=== PATIENT | male | born 1970 | race Caucasian/White ===

== ENCOUNTER 2024-07-15 08:21 | Observation (INO) ==
[2024-07-15 09:21] LABS: Basophils # (auto) 0.01 K/uL (0.00-0.20); Basophils % (auto) 0.1 %; Eosinophils # (auto) 0.16 K/uL (0.00-0.50); Eosinophils % (auto) 1.9 %; Hematocrit (blood only) 43.2 % (42.0-52.0); Hemoglobin 15.2 g/dl (14.0-18.0); Immature Granulocytes # (auto) 0.05 K/uL (0.01-0.20); Immature Granulocytes % (auto) 0.6 %; Lymphocytes # (auto) 0.85 K/uL (1.20-3.40); Lymphocytes % (auto) 10.3 %; Mean Corpuscular Hemoglobin 28.7 pg (25.0-34.0); Mean Corpuscular Hgb Conc 35.2 g/dL (32.0-36.0); Mean Corpuscular Volume 81.5 fL (80.0-100.0); Mean Platelet Volume 9.1 fL (9.4-12.4); Monocytes # (auto) 0.62 K/uL (0.11-0.59); Monocytes % (auto) 7.5 %; Neutrophils # (auto) 6.59 K/uL (1.40-6.50); Neutrophils % (auto) 79.6 %; Platelet Count 174 K/uL (130-400); RDW Coefficient of Variation 12.1 % (11.5-14.5); RDW Standard Deviation 35.7 fL (36.4-46.3); White Blood Count 8.28 K/ul (4.8-10.8)
[2024-07-15] MEDS: HYDROmorphone INJ 0.5 MG/0.5 ML SYR IV STA (09:30)
--- NOTE | 2024-07-15 09:32 | XRay Report ---
XR knee RT 3V CLINICAL HISTORY: worsening swelling, pain COMPARISON: 07/04/2024 FINDINGS: No acute fracture or dislocation. There is mild osteoarthritis. There is anterior soft tis jorge alberto swelling. No radiopaque foreign body seen. No evidence of osteomyelitis. IMPRESSION: 1. Anterior soft tissue swelling with no fracture seen. 2. Osteoarthritis. ACT 112: Negative or not required by law. Electronically signed by: Erick Dean M.D. 07/15/2024 9:30 AM
[2024-07-15 09:43] LABS: Albumin Globulin Ratio 1.1 (0.9-2); Albumin Level 3.5 gm/dl (3.4-5.0); BUN Creatinine Ratio 14.3 (10-20); Bilirubin,Total 0.8 mg/dl (0.2-1.0); C Reactive Protein 8.96 mg/dl (0-0.5); Creatinine Clr Calc Pharmacy 105.7 ml/min; Globulin 3.2 gm/dl (2.5-4.0); Potassium 4.1 mmol/L (3.5-5.1); Total Protein 6.7 gm/dl (6.0-8.3)
[2024-07-15] MEDS ORDERED: VANCOMYCIN CONSULT ACTIVE PRN (10:16)
[2024-07-15] MEDS: cefTRIAXone SODIUM 2,000 MG/50 ML BAG IV STA (10:45)
[2024-07-15] MEDS: VANCOMYCIN HCL 2,500 MG in SODIUM CHLORIDE 0.9% 500 ML IV ONE (10:52)
[2024-07-15] MEDS: ONDANSETRON INJ 2 MG/ML 2 ML VIAL ONE (10:52)
--- NOTE | 2024-07-15 12:04 | Emergency Department Note ---
Impression & Plan Cellulitis, Bursitis ED Provider Note NAME: WALI TEJEDA AGE: 53 SEX: M : 1970 ARRIVES VIA: Walk-In INFORMANT: Patient, ED PROVIDER(S): Gris Tran MD CHIEF COMPLAINT: Right knee pain HPI: This is a [id number]-year-old male presenting for right knee pain. Patient notes that he was working on his knees previously. He was seen here for knee pain a few weeks ago and out of prepatellar bursitis. He has had worsening pain. He notes exquisite tenderness to palpation as well as ambulation. He notes no fevers, chills, nausea or vomiting. There has been increase in the swollen in this region. ROS: See above HPI for pertinent positives & negatives. A total of 10 systems reviewed and were otherwise negative. PAST MEDICAL HISTORY: See Below PAST SURGICAL HISTORY: See Below FAMILY HISTORY: See Below SOCIAL HISTORY: See Below HOME MEDICATIONS: See Below ALLERGIES: See Below VITALS: See Below PHYSICAL EXAMINATION: General: resting comfortably in no acute distress Head: Normocephalic and atraumatic Eyes: Normal inspection, extraocular muscles intact Ear, nose, throat: Normal external exam Neck: Normal range of motion Respiratory: lungs clear to auscultation bilaterally Cardiovascular: Regular rate/rhythm, no murmur GI: soft, nontender, no guarding or rebound Extremities: Significant anterior knee swelling, slight erythema medially tracking up into the thigh, swollen lower extremity Neuro: The patient awake and alert, appropriately conversive, no focal deficits, symmetric faces Skin: Warm, dry, and intact MEDICAL DECISION MAKING: this a 53-year-old male presented for right knee pain. Clinically patient may have a infected cellulitis of the anterior knee versus a prepatellar bursitis infection. Attempted to get a sample of fluid from the bursa without success. -Bloodwork is reviewed showing no significant leukocytosis, anemia, electrolyte or creatinine abnormality -X-ray is reviewed showing anterior soft tissue swelling with no fracture, osteoarthritis also noted. -Patient ceftriaxone and vancomycin at this time. Patient given Dilaudid for pain control. -Will admit this time for cellulitis/infected bursa. -Care with Dr. Jensen Differential diagnosis: Septic knee, bursitis, cellulitis, gout Independent History obtained from: Diagnostics interpreted by me: ECG: None Cardiac Monitoring: An order was placed for continuous cardiac monitoring. The monitor shows a rate of 196 with sinus rhythm. Past Med/Surg History Problem List (Updated 07/15/24 @ 16:37 by Gris Tran MD) Bursitis (Acute) Cellulitis (Acute) Dyslipidemia Diabetes mellitus, type II Hypertension Bursitis, prepatellar (Acute) Medical History No significant past medical history Surgical History No pertinent past surgical history Family History Other Diabetes Social History Smoking Status: Never smoker Hx Substance Use: No Preferred Language: Luxembourgish Visual Impairment: No Limitations Hearing Ability: Normal marital status: Current Living Situation: Family current occupational status: employed Feels Safe at Home: Yes Allergies Allergies Allergy/AdvReac Type Severity Reaction Status Date / Time bee venom protein (honey bee) AdvReac Hives Unverified 09/25/20 02:05 Home Meds Home Medications Medication Instructions Recorded Confirmed insulin glargine 100 unit/mL (3 75 unit subcut HS 07/15/24 07/15/24 mL) subcutaneous pen (Lantus Solostar U-100 Insulin) meloxicam 15 mg tablet 15 mg PO .Q OTHER DAY 07/15/24 07/15/24 multivitamin 1 tab PO DAILY 07/15/24 07/15/24 olmesartan 20 mg tablet 20 mg PO DAILY 07/15/24 07/15/24 rosuvastatin 20 mg tablet 20 mg PO DAILY 07/15/24 07/15/24 Results & Data (ED) Vital Signs Vital Signs - 24 hr 07/15/24 08:27 07/15/24 09:13 07/15/24 10:57 Temperature 36.4 C L Temperature Source Temporal Artery Scan Pulse Rate 110 H Pulse Rate [Apical] 88 Respiratory Rate 18 18 18 Respiratory Effort / Characteristics Respiratory Depth Blood Pressure 130/90 Blood Pressure [Left Arm] 130/90 Blood Pressure Mean 103 Blood Pressure Mean [Left Arm] 103 Blood Pressure Position [Left Arm] Pulse Oximetry 97 93 Oxygen Delivery Method Room Air Room Air Sepsis New/Unexplained Change in Mental Status No Sepsis Action Taken by Nursing No Action Required 07/15/24 12:00 07/15/24 14:05 07/15/24 15:00 Temperature Temperature Source Pulse Rate Pulse Rate [Apical] 94 H 102 H 92 H Respiratory Rate 18 18 18 Respiratory Effort / Characteristics Non-Labored Respiratory Depth Normal Blood Pressure Blood Pressure [Left Arm] 156/93 H 132/84 159/96 H Blood Pressure Mean Blood Pressure Mean [Left Arm] 114 100 117 Blood Pressure Position [Left Arm] Lying Pulse Oximetry 98 96 95 Oxygen Delivery Method Room Air Sepsis New/Unexplained Change in Mental Status Sepsis Action Taken by Nursing 07/15/24 16:00 Temperature Temperature Source Pulse Rate Pulse Rate [Apical] 96 H Respiratory Rate 20 Respiratory Effort / Characteristics Respiratory Depth Blood Pressure Blood Pressure [Left Arm] 141/88 H Blood Pressure Mean Blood Pressure Mean [Left Arm] 105 Blood Pressure Position [Left Arm] Pulse Oximetry 96 Oxygen Delivery Method Room Air Sepsis New/Unexplained Change in Mental Status Sepsis Action Taken by Nursing Laboratory Data 07/15/24 09:11 07/15/24 09:11 Lab Results 07/15/24 Range/Units 09:11 WBC 8.28 (4.8-10.8) K/ul RBC 5.30 (4.70-6.10) M/uL Hgb 15.2 (14.0-18.0) g/dl Hct 43.2 (42.0-52.0) % MCV 81.5 (80.0-100.0) fL MCH 28.7 (25.0-34.0) pg MCHC 35.2 (32.0-36.0) g/dL RDW Std Deviation 35.7 L (36.4-46.3) fL RDW Coeff of Nicholas 12.1 (11.5-14.5) % Plt Count 174 (130-400) K/uL MPV 9.1 L (9.4-12.4) fL Immature Gran % (Auto) 0.6 % Neut % (Auto) 79.6 % Lymph % (Auto) 10.3 % Dickinson % (Auto) 7.5 % Eos % (Auto) 1.9 % Baso % (Auto) 0.1 % Neut # (Auto) 6.59 H (1.40-6.50) K/uL Lymph # (Auto) 0.85 L (1.20-3.40) K/uL Dickinson # (Auto) 0.62 H (0.11-0.59) K/uL Eos # (Auto) 0.16 (0.00-0.50) K/uL Baso # (Auto) 0.01 (0.00-0.20) K/uL Immature Gran # (Auto) 0.05 (0.01-0.20) K/uL ESR 35 H (0-20) mm/hr Sodium 137 (136-145) mmol/L Potassium 4.1 (3.5-5.1) mmol/L Chloride 103 (98-107) mmol/L Carbon Dioxide 31 (21-32) mmol/L Anion Gap 3 (3-11) BUN 13 (6-23) mg/dl Creatinine 0.91 (0.6-1.4) mg/dl Est Cr Clr Drug Dosing 105.7 ml/min eGFR 99.53 BUN/Creatinine Ratio 14.3 (10-20) Glucose 210 H (70-99(Fasting)) mg/dl Calcium 9.0 (8.6-10.3) mg/dl Total Bilirubin 0.8 (0.2-1.0) mg/dl AST 16 (13-39) U/L ALT 27 (7-52) U/L Alkaline Phosphatase 80 (34-104) U/L C-Reactive Protein 8.96 H (0-0.5) mg/dl Total Protein 6.7 (6.0-8.3) gm/dl Albumin 3.5 (3.4-5.0) gm/dl Globulin 3.2 (2.5-4.0) gm/dl Albumin/Globulin Ratio 1.1 (0.9-2) Administered Medications Ondansetron HCl (Ondansetron Inj 2 Mg/Ml 2 Ml Vial) 4 mg IV Q6H PRN PRN Reason: Nausea And Vomiting Stop: 08/14/24 15:36 Last Admin: 07/15/24 16:13 Dose: 4 mg Documented By: GREGORY Discontinued Medications Hydromorphone HCl (Hydromorphone Inj 0.5 Mg/0.5 Ml Syr) 0.5 mg IV NOW STA Stop: 07/15/24 09:29 Last Admin: 07/15/24 09:30 Dose: 0.5 mg Documented By: DEZ Vancomycin HCl 2,500 mg/ (Sodium Chloride) 550 mls @ 200 mls/hr IV NOW ONE Stop: 07/15/24 13:00 Last Infusion: 07/15/24 14:02 Dose: Infused Documented By: Admin: 07/15/24 10:52 Dose: 200 mls/hr Documented By: DEZ Ceftriaxone Sodium (Rocephin) 2,000 mg in 50 mls @ 100 mls/hr IV NOW STA Stop: 07/15/24 10:45 Last Infusion: 07/15/24 11:17 Dose: Infused Documented By: Admin: 07/15/24 10:45 Dose: 100 mls/hr Documented By: DEZ Acetaminophen (Ofirmev) 1,000 mg in 100 mls @ 400 mls/hr IV NOW STA Stop: 07/15/24 14:19 Last Infusion: 07/15/24 14:41 Dose: Infused Documented By: Admin: 07/15/24 14:16 Dose: 400 mls/hr Documented By: DEZ Ondansetron HCl (Ondansetron Inj 2 Mg/Ml 2 Ml Vial) Confirm Administered Dose 4 mg .ROUTE .STK-MED ONE Stop: 07/15/24 10:51 Last Admin: 07/15/24 10:52 Dose: 4 mg Documented By: DEZ Imaging Data Radiologist's Impression: Knee X-Ray 07/15/24 09:10 XR knee RT 3V CLINICAL HISTORY: worsening swelling, pain COMPARISON: 07/04/2024 FINDINGS: No acute fracture or dislocation. There is mild osteoarthritis. There is anterior soft tissue swelling. No radiopaque foreign body seen. No evidence of osteomyelitis. IMPRESSION: 1. Anterior soft tissue swelling with no fracture seen. 2. Osteoarthritis. ACT 112: Negative or not required by law. Electronically signed by: Erick Dean M.D. 07/15/2024 9:30 AM Discharge Plan Visit Data Chief Complaint: Knee Injury/Pain Stated Complaint: RT KNEE PAIN ED Provider: Gris Tran Discharge Problem: Cellulitis, Bursitis Patient Disposition: Admitted As Inpatient Discharge Instructions Interventions: ED Discharge Assessment Last Done: 07/15/24 16:32 Forms Stand Alone Forms: [employer] Prescriptions Prescriptions: No Action multivitamin [Multi-Vitamins] Tablet 1 tab PO DAILY meloxicam 15 mg tablet 15 mg PO .Q OTHER DAY olmesartan 20 mg tablet 20 mg PO DAILY rosuvastatin 20 mg tablet 20 mg PO DAILY insulin glargine [Lantus Solostar U-100 Insulin] 100 unit/mL (3 mL) Insulin Pen 75 unit subcut HS Referrals Referrals: PCP,NO [Primary Care Provider] - Discharge Problem: Cellulitis Qualifiers: Site of cellulitis: extremity Site of cellulitis of extremity: lower extremity Laterality: right Qualified Code(s): L03.115 - Cellulitis of right lower limb
--- NOTE | 2024-07-15 14:05 | History & Physical Report ---
Date of Service July 15, 2024 Assessment & Plan (1) Bursitis, prepatellar: (2) Hypertension: (3) Diabetes mellitus, type II: (4) Dyslipidemia: Plan #Prepatellar bursitis - place in observation - cont IV abx, if improving in the next 24 hours, will d/c on oral abx - XR right knee unremarkable #Vomiting - check KUB - check CBC / BMP / lactate - NPO - IVF - zofran prn #HTN - cont home meds #DM II - A1c recently as outpatient: 9 - carb controlled diet - cont home meds - correctional scale #Dyslipidemia - cont statin Dispo: observation History of Present Illness Primary Care Provider: NO PCP 53 yo M with PMHx of HTN, DM II, HLD returns to the hospital for the evaluation of right knee pain. He was in the emergency room on 07/04/24 for prepatellar bursitis and sent home on steroids. He now returns with worsening pain, increased swelling, and more redness. He does not notice any improvement with the steroids he had taken. In the ED, work up negative for any osteomyelitis. ED physician attempted to collect fluid but was unable to aspirate any. Given evidence of cellulitis, he was started on IV antibiotics. 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 He is not able to wear knee pads consistently due to work requirement of getting into tight places. Allergies Allergy/AdvReac Type Severity Reaction Status Date / Time bee venom protein (honey bee) AdvReac Hives Unverified 09/25/20 02:05 Home Medications Medication Instructions Recorded Confirmed Type insulin glargine 100 unit/mL (3 75 unit subcut HS 07/15/24 07/15/24 History mL) subcutaneous pen (Lantus Solostar U-100 Insulin) meloxicam 15 mg tablet 15 mg PO .Q OTHER DAY 07/15/24 07/15/24 History multivitamin 1 tab PO DAILY 07/15/24 07/15/24 History olmesartan 20 mg tablet 20 mg PO DAILY 07/15/24 07/15/24 History rosuvastatin 20 mg tablet 20 mg PO DAILY 07/15/24 07/15/24 History Past Med/Surg History Problem List (Updated 07/15/24 @ 16:37 by Gris Tran MD) Bursitis (Acute) Cellulitis (Acute) Dyslipidemia Diabetes mellitus, type II Hypertension Bursitis, prepatellar (Acute) Medical History No significant past medical history Surgical History No pertinent past surgical history Family History Other Diabetes Social History Smoking Status: Never smoker Second Hand Exposure: No; Do You Dip or Chew Tobacco: No; Tobacco Cessation Education Requested by Patient: No Hx Alcohol Use: No Hx Substance Use: Yes Last Used Substance: Days (ago) Last Used Substance Other:: Only started using due to knee pain a few days ago Preferred Language: Hong Konger Communication Ability: Effective Visual Impairment: No Limitations Hearing Ability: Normal [place] Required: No Beliefs That Will Affect Care: None marital status: Current Living Situation: Spouse current occupational status: employed Other Information That Helps Us Care for You: No Feels Safe at Home: Yes Safety Concerns: Feels Safe At This Time Review of Systems Review of Systems: comprehensive ROS neg Physical Exam Physical Exam: Gen: in bed comfortable, NAD HEENT: NC/AT, anicteric, MMM Lungs: CTAB CVS: s1s2nl, RRR Abd: nl bowel sounds, soft, NT : no ayala Ext: right knee swollen anteriorly with redness Neuro: AAOx3 Psych: calm / cooperative Results & Data Results & Data Vital Signs (Past 12 Hours) Vital Signs Temp Pulse Pulse Resp BP BP Pulse Ox 07/15/24 12:00 94 H 18 156/93 H 98 07/15/24 10:57 88 18 130/90 93 07/15/24 09:13 18 07/15/24 08:27 36.4 C L 110 H 18 130/90 97 O2 Del Method 07/15/24 12:00 07/15/24 10:57 Room Air 07/15/24 09:13 07/15/24 08:27 Room Air PG Care Time/CCT Total # of Minutes Spent Total Time Spent with Patient: Total time spent is greater than 50% in coordination of care (as documented) at patient's floor/unit and/or counseling patient: Coding Level of Care Code 91326 INT INP/OBS CARE MIN Diagnoses Bursitis, prepatellar M70.40 Hypertension I10 Diabetes mellitus, type II E11.9 Dyslipidemia E78.5
[2024-07-15] MEDS: ACETAMINOPHEN 1,000 MG/100 ML VIAL IV STA (14:16)
[2024-07-15] MEDS ORDERED: PHARMACY GLYCEMIC MGMT CONSULT PRN (14:52)
--- NOTE | 2024-07-15 15:28 | Pharmacy Report ---
Pharmacy Glycemic Short Note 2 - Date of Service July 15, 2024 - Glycemic Short BSG Results (Last 24 hours): 07/15/24 09:11 Glucose 210 H OUTPATIENT ANTIDIABETIC REGIMEN: * Insulin glargine 75 units SQ HS * A1c 9% in 2022, updated A1c ordered ASSESSMENT: * 53 yo M PMHx of HTN, DM II, HLD returns to the hospital for the evaluation of R knee pain. He was in the ER on 07/04/24 for prepatellar bursitis and sent home on steroids. He now returns with cellulitis, starting on IV Vancomycin. * Patient on basal insulin alone as outpatient, will split this to basal bolus insulin dosing for better glycemic control while inpatient. PLAN FOR INPATIENT GLYCEMIC CONTROL: * Basal insulin * Lantus 40-65 units SQ HS (40 units for BSG < 220, 65 units for BSG 220 or greater) * Bolus insulin * NovoLog per scale ACHS or Q6hrs while NPO * Goal Range: Low 110 mg/dL - High 140 mg/dL * Correction Factor: 25 mg/dL/unit * Nutritional / Prandial insulin per carb ratio of 1 unit per 8 grams CHO consumed
[2024-07-15] MEDS ORDERED: CARBOHYDRATES FOR HYPOGLYCEMIA PO PRN (15:30)
[2024-07-15] MEDS ORDERED: GLUCOSE 10 TAB/TUBE PO PRN (15:30)
[2024-07-15] MEDS ORDERED: DEXTROSE 50% 50 ML SYRINGE IV PRN (15:30)
[2024-07-15] MEDS ORDERED: GLUCOSE 40% GEL 15 GM TUBE PO PRN (15:30)
[2024-07-15] MEDS ORDERED: GLUCAGON FOR INJ 1 MG VIAL SQ PRN (15:30)
[2024-07-15] MEDS: ONDANSETRON INJ 2 MG/ML 2 ML VIAL IV PRN (16:13)
[2024-07-15] MEDS: INSULIN ASPART PER UNIT CHARGE SC SCH (17:21)
[2024-07-15] MEDS: ceFAZolin 2000MG 2,000 MG/15 ML SYR IV SCH (17:54)
[2024-07-15] MEDS: ONDANSETRON INJ 2 MG/ML 2 ML VIAL IV STA (18:24)
[2024-07-15 18:32] LABS: Basophils # (auto) 0.01 K/uL (0.00-0.20); Basophils % (auto) 0.1 %; Eosinophils # (auto) 0.01 K/uL (0.00-0.50); Eosinophils % (auto) 0.1 %; Hematocrit (blood only) 41.3 % (42.0-52.0); Hemoglobin 14.4 g/dl (14.0-18.0); Immature Granulocytes # (auto) 0.07 K/uL (0.01-0.20); Immature Granulocytes % (auto) 0.7 %; Lymphocytes % (auto) 7.9 %; Mean Corpuscular Hemoglobin 28.6 pg (25.0-34.0); Mean Corpuscular Hgb Conc 34.9 g/dL (32.0-36.0); Mean Corpuscular Volume 81.9 fL (80.0-100.0); Mean Platelet Volume 9.4 fL (9.4-12.4); Monocytes # (auto) 0.48 K/uL (0.11-0.59); Monocytes % (auto) 4.7 %; Neutrophils # (auto) 8.82 K/uL (1.40-6.50); Neutrophils % (auto) 86.5 %; Platelet Count 184 K/uL (130-400); RDW Standard Deviation 35.7 fL (36.4-46.3); Red Blood Count 5.04 M/uL (4.70-6.10); White Blood Count 10.19 K/ul (4.8-10.8)
[2024-07-15 18:47] LABS: BUN Creatinine Ratio 13.6 (10-20); Calcium 8.8 mg/dl (8.6-10.3); Creatinine Clr Calc Pharmacy 90.4 ml/min; Potassium 4.2 mmol/L (3.5-5.1)
[2024-07-15] MEDS: LACTATED RINGER'S 1,000 ML IV SCH (18:54)
--- NOTE | 2024-07-15 19:37 | XRay Report ---
EXAM: Radiograph of the Abdomen 1 View INDICATION: Persistent vomiting TECHNIQUE: Frontal supine view of the abdomen/pelvis. COMPARISON: No relevant prior studies available. FINDINGS: Limitations: None. Gastrointestinal tract: Moderate formed stool throughout the colon sparing the rectum. The small bowel is relatively gasless. No gaseous distention. Organs: Visualized organ shadows appear grossly normal. Bones/joints: There is mild convex left scoliosis of the upper lumbar spine. Soft tissues: No abnormality noted. No radiopaque foreign body noted. IMPRESSION: Relatively gasless small bowel with moderate amounts of formed stool in the colon sparing the rectum. Gaseous appearance of the small bowel is suggestive of ileus. If additional imaging is clinically warranted, CT abdomen pelvis is the modality of choice. ACT 112: N/A Electronically signed by Gabi Will 07-15-2024 7:36 PM
[2024-07-15] MEDS ORDERED: NON-FORMULARY MEDICATION (Insulin Glargine [Lantus Solostar U-100 Insulin] 100 unit/mL (3 SQ SCH (21:00)
[2024-07-15] MEDS: VANCOMYCIN HCL 1,500 MG in SODIUM CHLORIDE 0.9% 500 ML IV SCH (21:09)
[2024-07-15] MEDS: LANTUS PER UNIT CHARGE SC SCH (21:12)
[2024-07-16 06:49] LABS: Hematocrit (blood only) 38.4 % (42.0-52.0); Hemoglobin 13.1 g/dl (14.0-18.0); Mean Corpuscular Hemoglobin 28.7 pg (25.0-34.0); Mean Corpuscular Hgb Conc 34.1 g/dL (32.0-36.0); Mean Platelet Volume 9.5 fL (9.4-12.4); Platelet Count 166 K/uL (130-400); RDW Coefficient of Variation 12.1 % (11.5-14.5); RDW Standard Deviation 36.6 fL (36.4-46.3); Red Blood Count 4.57 M/uL (4.70-6.10); White Blood Count 8.71 K/ul (4.8-10.8)
[2024-07-16 07:05] LABS: BUN Creatinine Ratio 13.5 (10-20); Calcium 8.7 mg/dl (8.6-10.3); Creatinine Clr Calc Pharmacy 95.6 ml/min; Magnesium 1.6 mg/dl (1.7-2.4); Phosphorus 3.1 mg/dl (2.5-4.9); Potassium 4.3 mmol/L (3.5-5.1)
[2024-07-16 07:25] LABS: Estimated Average Glucose 283 mg/dl; Hemoglobin A1C 11.5 % (4.5-5.6)
[2024-07-16] MEDS: LOSARTAN POTASSIUM 50 MG TAB PO SCH (08:18)
[2024-07-16] MEDS: ROSUVASTATIN CALCIUM 20 MG TAB PO SCH (08:18)
--- NOTE | 2024-07-16 10:48 | Hospitalist Progress Note ---
Date of Service July 16, 2024 Assessment & Plan (1) Bursitis, prepatellar: (2) Hypertension: (3) Diabetes mellitus, type II: (4) Dyslipidemia: Plan #Prepatellar bursitis - XR right knee unremarkable for acute pathology - MRSA neg, vanc d/c-ed - cont cefazoling - given worsening symptoms, will request ortho eval #Vomiting - resolved - no obvious obstruction, symptoms resolved - likely due to opioid pain medication - lactate now wnl - cont diet - zofran prn #HTN - cont home meds #DM II - A1c recently as outpatient: 9 - carb controlled diet - cont home meds - correctional scale - pharmacy assisting with BG management #Dyslipidemia - cont statin Dispo: observation Admission and Anticipated Discharge Date Admission Date: July 15, 2024 Subjective Since admission, he had significant vomiting after receiving opioid pain medications which has subsequently resolved From his right knee standpoint, he is having increased warmth without i mprovement in his swelling. He also has persistent redness. Review of Systems Review of Systems: comprehensive ROS neg Physical Exam Physical Exam: Gen: in bed comfortable, NAD HEENT: NC/AT, anicteric, MMM Lungs: CTAB CVS: s1s2nl, RRR Abd: nl bowel sounds, soft, NT : no ayala Ext: right knee swollen anteriorly with redness, worsening warmth and persistent pain Neuro: AAOx3 Psych: calm / cooperative Results & Data Results & Data Vital Signs (Past 12 Hours) Vital Signs Temp Pulse Resp BP Pulse Ox O2 Del Method 07/16/24 07:51 36.6 C 65 18 122/80 92 Room Air PG Care Time/CCT Total # of Minutes Spent Total Time Spent with Patient: Total time spent is greater than 50% in coordination of care (as documented) at patient's floor/unit and/or counseling patient: Coding Level of Care Code 79298 SUB INP/OBS CARE 2/35MIN Diagnoses Bursitis, prepatellar M70.40 Hypertension I10 Diabetes mellitus, type II E11.9 Dyslipidemia E78.5
[2024-07-16] MEDS: MAGNESIUM OXIDE 400 MG TAB PO ONE (11:05)
[2024-07-16] MEDS: IBUPROFEN 200 MG TAB PO PRN (11:18)
[2024-07-16] MEDS: LIDOCAINE 2% JELLY 5 ML TUBE EXT ONE (11:52)
[2024-07-16] MEDS: LIDOCAINE 2% 20 MG/ML 5 ML SYR IV ONE (12:01)
[2024-07-16] MEDS: LIDOCAINE 2% LOCAL 20 ML VIAL INFIL ONE (12:02)
--- NOTE | 2024-07-16 12:34 | Orthopedic Consultation ---
Date of Consultation July 16, 2024 Assessment & Plan (1) Bursitis, prepatellar: (2) Hypertension: (3) Diabetes mellitus, type II: (4) Dyslipidemia: Plan This is a 53 year old male with PMHx of HTN, DM II, and HLD presents for evaluation of right knee pain. He was in the emergency room on 07/04/24 for prepatellar bursitis and sent home on steroids. He then returned with worsening pain, increased redness and swelling. He did not notice any improvement after taking the steroids. In the ED, they did attempt to aspirate his prepatellar bursa but no aspirate was obtained. Given evidence of cellulitis, he was admitted to the hospital and started on IV antibiotics On my evaluation, the patient has tenderness palpation diffusely about his entire knee. He does have pain with motion of the knee most significantly with knee flexion. On admission, he had an elevated CRP at 8.9 mg/dL with an ESR of 35 and white blood cell count of only 8. Based on the patient's clinical exam, I do have a slight concern for septic arthritis, but my primary working diagnosis is prepatellar bursitis. In order to rule out septic arthritis, I did recommend an aspiration of the patient's need. We discussed the risks of this including nondiagnostic results, "dry tap", introduction of infection, need for surgery in the future. The patient and his were agreeable to the procedure. Please see separate procedure note for full details, we did obtain approximately 5 cc of clear yellow normal looking synovial fluid. Based on the appearance of the fluid, my index of suspicion for septic arthritis was much lower. His results have since come back and show a white blood cell count in the synovial fluid of 231 with 17% PMNs. Crystals, Lyme, Gram stain and cultures are all still pending. Given the above, my recommendation is to treat this as a prepatellar bursitis with elevation, ice, Rigoberto wrap, anti-inflammatory medications if able. I do not believe this represents an acute septic prepatellar bursitis as there is no significant erythema about his prepatellar bursa. No plans for acute orthopedic intervention at this time, patient to follow-up with his PCP with this regard. History of Present Illness Reason for Consultation: Right knee pain Attending Physician: Camila Coffey MD History of Present Illness Mr. 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 He was in the emergency room on 07/04/24 for prepatellar bursitis and sent home on steroids. He then returned with worsening pain, increased redness and swelling. He did not notice any improvement after taking the steroids. In the ED, they did attempt to aspirate his prepatellar bursa but no aspirate was obtained. Given evidence of cellulitis, he was admitted to the hospital and started on IV antibiotics. Currently, the patient notes pain and swelling in his right knee which worsens with attempts of movement. He has been ambulatory to the bathroom but also notes increased pain with this. He does feel that it is slightly better today than it has been. He otherwise denies fevers, chills, chest pain, shortness of breath, cough, abdominal pain, ongoing nausea/vomiting, or other systemic symptoms. No numbness/tingling. Allergies Allergy/AdvReac Type Severity Reaction Status Date / Time hydromorphone AdvReac Mild Vomiting Verified 07/16/24 10:47 bee venom protein (honey bee) AdvReac Hives Unverified 09/25/20 02:05 Home Medications Medication Instructions Recorded Confirmed Type insulin glargine 100 unit/mL (3 75 unit subcut HS 07/15/24 07/15/24 History mL) subcutaneous pen (Lantus Solostar U-100 Insulin) meloxicam 15 mg tablet 15 mg PO .Q OTHER DAY 07/15/24 07/15/24 History multivitamin 1 tab PO DAILY 07/15/24 07/15/24 History olmesartan 20 mg tablet 20 mg PO DAILY 07/15/24 07/15/24 History rosuvastatin 20 mg tablet 20 mg PO DAILY 07/15/24 07/15/24 History Patient History Medical History No significant past medical history Surgical History No pertinent past surgical history Family History Other Diabetes Social History Smoking Status: Never smoker Second Hand Exposure: No; Do You Dip or Chew Tobacco: No; Tobacco Cessation Education Requested by Patient: No Hx Alcohol Use: No Hx Substance Use: Yes Last Used Substance: Days (ago) Last Used Substance Other:: Only started using due to knee pain a few days ago Preferred Language: Filipino Communication Ability: Effective Visual Impairment: No Limitations Hearing Ability: Normal Return Checker Required: No Beliefs That Will Affect Care: None marital status: Current Living Situation: Spouse current occupational status: employed Other Information That Helps Us Care for You: No Feels Safe at Home: Yes Safety Concerns: Feels Safe At This Time Review of Systems Review of Systems: Systems were reviewed and were negative unless otherwise stated in HPI as above Physical Exam Physical Exam: Resting in bed, no acute distress Musculoskeletal: RLE: Edema about the right knee most significantly over the prepatellar region with tenderness to palpation. There is an old puncture wound noted here from previous aspiration attempt. no erythema, mild warmth. ROM intact with flexion, extension and leg raise but limited secondary to pain. D/p pulse intact, NVI Neurologic: Awake, alert and oriented x 3 Results & Data Vital Signs (Past 12 Hours) Vital Signs Temp Pulse Resp BP Pulse Ox O2 Del Method 07/16/24 07:51 36.6 C 65 18 122/80 92 Room Air Laboratory Results Laboratory Tests 07/15/24 07/16/24 07/16/24 18:18 06:19 06:19 WBC 8.71 RBC 4.57 L Hgb 13.1 L Hct 38.4 L MCV 84.0 MCH 28.7 MCHC 34.1 RDW Std Deviation 36.6 Neut # (Auto) 8.82 H Lymph # (Auto) 0.80 L Hemoglobin A1c 11.5 H Diagnostic Findings X-rays of the right knee were personally interpreted and reviewed. These demons trate no acute osseous abnormalities. No significant degenerative changes noted on these nonweightbearing radiographs. There is mild soft tissue swelling about the knee with a small effusion noted..
[2024-07-16 13:04] LABS: Appearance Synovial Fluid Clear; Color Synovial Fluid Yellow; RBC Synovial Fluid Auto < 2000 /uL; Source Synovial Fluid Knee; WBC Synovial Fluid Auto 231 /ul (0-200)
--- NOTE | 2024-07-16 14:00 | Procedure Note ---
Procedure Note Date of Service July 16, 2024 Note Right knee arthrocentesis procedure note Procedure: Right knee arthrocentesis Surgeon: Buzz Mcintosh DO Preop diagnosis: Right knee swelling Postop diagnosis: Right knee swelling Indications: 53-year-old gentleman with right knee swelling and pain. Primary suspicion is for prepatellar bursitis, however due to the patient's significant amount of pain, I did recommend arthrocentesis of the joint to rule out septic arthritis. I discussed with the patient and his the risks including but not limited to nondiagnostic aspiration, "dry tap", need for surgery in future, introduction of infection into the knee joint. After thorough discussion the risk, benefits, alternatives, they were agreeable to proceed with our centesis. Procedure: The patient's right lower extremity was prepped and draped in standard sterile fashion using ChloraPrep. 5 cc of 1% lidocaine without epinephrine were used in the subcutaneous tissues for analgesia. Once adequate analgesia was achieved, an 18-gauge spinal needle was introduced from the lateral suprapatellar region into the knee joint. The stylette was removed and approximately 5 cc of clear yellow normal looking synovial fluid was obtained. Pressure was held on this while a sterile dressing was applied and the knee was wrapped in an Rigoberto wrap. The fluid was sent to the lab for cell count/differential, Gram stain and culture, Lyme, crystal analysis. Coding
[2024-07-16] MEDS: DOCUSATE SODIUM/SENNA 50/8.6MG TAB PO SCH (17:00)
--- NOTE | 2024-07-17 07:22 | Orthopedic Progress Note ---
Date of Service July 17, 2024 Assessment & Plan (1) Bursitis, prepatellar: (2) Hypertension: (3) Diabetes mellitus, type II: (4) Dyslipidemia: Plan This is a 53 year old male with PMHx of HTN, DM II, and HLD presents for evaluation of right knee pain. On my evaluation, the patient has tenderness palpation diffusely about his entire knee. He does have pain with motion of the knee most significantly with knee flexion. On admission, he had an elevated CRP at 8.9 mg/dL with an ESR of 35 and white blood cell count of only 8. We did obtain an aspiration of the patient's knee which returned approximately 5 cc of clear yellow normal looking synovial fluid. synovial white blood cell count in the synovial fluid of 231 with 17% PMNs. gram stain negative. crystals, cultures pending. Given the above, my recommendation is to treat this as a prepatellar bursitis with elevation, ice, Rigoberto wrap, anti-inflammatory medications if able. I do not believe this represents an acute septic prepatellar bursitis as there is no significant erythema or drainage about his prepatellar bursa. No plans for acute orthopedic intervention at this time. Admission and Anticipated Discharge Date Admission Date: July 15, 2024 Subjective Patient seen and evaluated this morning.Patient notes that he had mild increase in pain after the aspiration yesterday.. Review of Systems Review of Systems: All systems reviewed & are unremarkable except as noted in HPI & below Physical Exam Physical Exam: Patient remains tender palpation diffusely about his knee. He has some pain with range of motion specifically with flexion. He is most tender to palpation over his prepatellar bursa. Mild warmth noted, no significant redness. No draining wounds. Results & Data Vital Signs (Past 12 Hours) Vital Signs Temp Pulse Resp BP Pulse Ox O2 Del Method 07/16/24 19:32 36.5 C 98 H 17 141/86 H 95 Room Air
[2024-07-17 07:23] VITALS: BP 147/94; PULSE 90; RESP 16; TEMP 98.1; O2SAT 96
[2024-07-17 08:23] LABS: Basophils # (auto) 0.02 K/uL (0.00-0.20); Basophils % (auto) 0.3 %; Eosinophils # (auto) 0.13 K/uL (0.00-0.50); Eosinophils % (auto) 1.9 %; Hemoglobin 13.6 g/dl (14.0-18.0); Immature Granulocytes # (auto) 0.04 K/uL (0.01-0.20); Immature Granulocytes % (auto) 0.6 %; Lymphocytes # (auto) 0.77 K/uL (1.20-3.40); Lymphocytes % (auto) 11.1 %; Mean Corpuscular Hemoglobin 28.9 pg (25.0-34.0); Mean Corpuscular Hgb Conc 34.9 g/dL (32.0-36.0); Mean Corpuscular Volume 82.8 fL (80.0-100.0); Mean Platelet Volume 9.5 fL (9.4-12.4); Monocytes # (auto) 0.51 K/uL (0.11-0.59); Monocytes % (auto) 7.3 %; Neutrophils # (auto) 5.49 K/uL (1.40-6.50); Neutrophils % (auto) 78.8 %; Platelet Count 187 K/uL (130-400); RDW Standard Deviation 36.7 fL (36.4-46.3); Red Blood Count 4.71 M/uL (4.70-6.10); White Blood Count 6.96 K/ul (4.8-10.8)
[2024-07-17 08:38] LABS: BUN Creatinine Ratio 13.1 (10-20); C Reactive Protein 3.53 mg/dl (0-0.5); Calcium 8.6 mg/dl (8.6-10.3); Creatinine Clr Calc Pharmacy 92.9 ml/min; Magnesium 1.7 mg/dl (1.7-2.4)
--- NOTE | 2024-07-17 11:09 | Discharge Summary ---
Discharge Summary Date of Service July 17, 2024 Principal Dx & Hospital Course #1 = Principal Diagnosis (1) Bursitis, prepatellar: Cultures negative of the aspirate. This appears to be an aseptic prepatellar bursitis of the right knee. He will apply ice 3 times a day for 20 minutes each application and avoid any pressure on the right knee. He will be discharged on a tapering dose of prednisone. His symptoms should resolve. If they do not, he needs to follow-up with orthopedics (2) Hypertension: Stable. Continue current medical management (3) Diabetes mellitus, type II: Stable. Continue current medical management (4) Dyslipidemia: Stable. Continue current medical management Plan Home today, July 17 Admission HPI Per Admitting Provider 53 yo M with PMHx of HTN, DM II, HLD returns to the hospital for the evaluation of right knee pain. He was in the emergency room on 07/04/24 for prepatellar bursitis and sent home on steroids. He now returns with worsening pain, increased swelling, and more redness. He does not notice any improvement with the steroids he had taken. In the ED, work up negative for any osteomyelitis. ED physician attempted to collect fluid but was unable to aspirate any. Given evidence of cellulitis, he was started on IV antibiotics. 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 He is not able to wear knee pads consistently due to work requirement of getting into tight places. Discharge Exam General-alert and oriented x3, no fever, no chills HEENT-head atraumatic and normocephalic, pupils equal and reactive to light, extraocular muscles intact Neck-no lymphadenopathy or thyromegaly, trachea midline Chest-clear to auscultation. No rales, wheezing or rhonchi Cardiac-regular rate and rhythm, normal S1 and S2 Abdomen-normal bowel sounds, no hepatosplenomegaly Extremities-right knee tenderness and swelling from aseptic prepatellar bursitis Neuro-cranial nerves II through XII intact, motor and sensory function within normal limits, strength symmetrical, no focal deficits Psych-normal affect, normal mood Discharge Plan Discharge Items Patient Disposition: Home - Self-Care Reason For Visit: PREPATELLAR BURSITIS Discharge Diagnosis: Aseptic prepatellar bursitis right knee Activity: Per Instructions section Activity Comment: Ice applications to right knee for 20 min each application 3 times daily Non-emergency contact: Primary Care Provider Call non-emergency contact if: your symptoms worsen Follow-up/Referrals: PCP,NO [Primary Care Provider] - Diet: Carb Consistent or DM2 Addtl Attending Provider Instructions: Swelling of the right knee should gradually resolve over the next week. Remain off work until July 24. If symptoms persist, follow-up with orthopedics Pending Studies at Discharge: No Stand-Alone Forms: My [facility], Work/School Release, Smoking Cessation Medications and DC Order Prescriptions: New prednisone 10 mg Tablet See Rx Instructions .ROUTE .COMPLEX Qty: 12 0RF Rx Instructions: 10 mg orally 3 times a day for 2 days, then 10 mg twice a day for 2 days, then 10 mg daily for 2 days, then stop Continued multivitamin [Multi-Vitamins] Tablet 1 tab PO DAILY meloxicam 15 mg tablet 15 mg PO .Q OTHER DAY olmesartan 20 mg tablet 20 mg PO DAILY rosuvastatin 20 mg tablet 20 mg PO DAILY insulin glargine [Lantus Solostar U-100 Insulin] 100 unit/mL (3 mL) Insulin Pen 75 unit subcut HS Discharge Orders: Discharge Order (Routine); Ordered 07/17/24 Ordered By: Kemar Evans Admission Data Admit Date/Time: 07/15/24 14:48 Attending Provider: Kemar Evans Admit Provider: Camila Coffey Primary Care Provider: PCP,NO Other Providers: Camila Coffey; Buzz Mcintosh Hospital Stay Data Consultations 07/15/24 11:13 ED Decision to Admit Stat 07/16/24 10:26 Consult Orthopedic Surgery Routine Pending Results Patient Have Any Pending Studies at Discharge: No Discharge Instructions Given to Patient (Per Discharging Provider) Swelling of the right knee should gradually resolve over the next week. Remain off work until July 24. If symptoms persist, follow-up with orthopedics Total Time Total Time Spent Total Time Spent (In Minutes): 45 minutes Coding Level of Care Code 37962 INP/OBS DISCH >30 MIN Diagnoses Bursitis, prepatellar M70.40 Hypertension I10 Diabetes mellitus, type II E11.9 Dyslipidemia E78.5
[2024-07-17] MEDS: predniSONE 10 MG TABLET PO SCH (11:21)
[2024-07-17] MEDS: oxyCODONE HCL IR 5 MG TAB (IMMEDIATE RELEASE) PO STA (13:55)
== END 2024-07-17 14:19 | disposition home or self-care (01) ==
LOC: ED 08:21 → 3E 08:21 → SUATTDRO 14:48 → 3E 16:32 → UNDODISOB 07-17 11:48